=== PATIENT | female | born 1955 | race African-American/Black ===

== ENCOUNTER 2016-11-19 08:50 | Emergency (ER) | payer MEDICARE, MEDICAID ==
[~2016-11-19] VITALS: Ht 154.9 cm; Wt 75.0 kg
[~2016-11-19 08:50] MED LIST: AMLODIPINE5 MG PO; AMOXICILLIN875 MG OR; ARTHRITIS PAIN RELIE PO; AUGMENTIN875TAB OR; BAYER LOW81 MG OR; BLACK COHOS1 OR; CARAFATE OR; CELEBREX200 MG OR; DARVOCET-N 100100 MG OR; DEPO-MEDROL40 MG/ML IM; DILTIAZEM30 MG PO; EC-NAPROSYN500 MG PO; FLUARIX QUADRIV1 INJ IM; FLUOXETINE40 MG PO; FLUZONE SPLT1 M1 IM; FUROSEMIDE40 MG PO; HYDROCHLOROT12.5 MG OR; IMURAN50 MG OR; IMURAN50 MG PO; JANTOVEN3 MG PO; KLOR-CON M2020 MEQ PO; LISINOP/HCTZ1 TA1 OR; LISINOP/HCTZ1 TA1 PO; LISINOP/HCTZ1 TA2 PO; LISINOPRIL20 MG PO; LOVASTATIN20 M1 PO; METOPROL TAR100 M1 PO; METOPROL TAR100 MG OR; METOPROLOL TAR100 MG PO; METOPROLOL TART50 MG PO; NAPROSYN500 MG PO; NITROSTAT0.4 MG SL; NORVASC10 M1 OR; NORVASC10 MG OR; NORVASC10 MG PO; OMEPRAZOLE20 M1 PO; OMEPRAZOLE20 MG PO; OMEPRAZOLE40 MG PO; POLYTRIM OP; POTASSIUM CHLO20 MEQ PO; PRAVACHOL20 MG PO; PRAVASTATIN10 MG PO; PREDNISONE10 MG OR; PREDNISONE10 MG PO; PREDNISONE5 MG PO; PRILOSEC20 MG OR; PROZAC10 MG OR; SIMVASTATIN20 MG OR; SLEEP AID; STERAPRED5 MG PO; TOPROL XL50 MG OR; TRAMADOL HYDROC50 MG PO; XANAX0.5 MG PO; ZESTORETIC 20/11 TAB OR; ZESTRIL20 MG OR; [UNRECOGNIZED DRUG - OTHER] OR
[2016-11-19] MEDS ORDERED: CA CIT/VIT1 PO (09:06)
[2016-11-19] MEDS ORDERED: AMLODIPINE5 MG PO (09:07)
[2016-11-19] MEDS ORDERED: VITAMIN D2000 UNI2 PO (09:07)
[2016-11-19] MEDS ORDERED: MULTI VIT PO (09:17)
[2016-11-19] MEDS ORDERED: OMEPRAZOLE10 MG PO (09:18)
[2016-11-19] MEDS ORDERED: FUROSEMIDE40 MG PO (09:19)
[2016-11-19] MEDS ORDERED: PREDNISONE5 MG PO (09:20)
[2016-11-19] MEDS ORDERED: LOPRESSOR50 M1 PO (09:21)
[2016-11-19] MEDS ORDERED: ASPIRIN81 MG PO (09:22)
[2016-11-19] MEDS ORDERED: LISINOPRIL20 MG PO (09:26)
[2016-11-19] MEDS ORDERED: ZOLPIDEM5 M1 PO (09:27)
[2016-11-19 09:43] LABS: HEMATOCRIT 44.4 % (37.0-47.0); HEMOGLOBIN 14.7 g/dl (12.0-16.0); MEAN CELL VOLUME 85.4 fL CALC (80.0-100.0); MEAN CORPUSCULAR HGB 28.3 pG CALC (26.0-32.0); MEAN CORPUSCULAR HGB CONC 33.1 g/L CALC (32.0-36.0); NEUT# 0.41 thou/uL (2.00-7.15); RED BLOOD COUNT 5.2 mill/uL (4.20-5.60); RED CELL DISTRI WIDTH 13.6 % (11.5-15.5)
[2016-11-19 10:04] LABS: ALBUMIN 4.4 g/dL (3.2-5.0); ALKALINE PHOSPHATASE 83 u/l (38-126); ANION GAP 16 (6-22 (CALC)); BILIRUBIN, TOTAL 1.1 mg/dL (0.0-1.4); BUN 11 mg/dL (7-17); BUN/CREATININE RATIO 11 (12-20 (CALC)); CALCIUM 8.9 mg/dL (8.4-10.2); CARBON DIOXIDE 28 mmol/l (22-30); CHLORIDE 105 mmol/l (95-108); GFR 57 ML/MIN (>=60 (CALC)); GFR FOR AFR.AMER. > 60 ML/MIN (>=60 (CALC)); GLUCOSE 86 mg/dL (65-105); POTASSIUM 3.8 mmol/l (3.5-5.1); SGOT/AST 50 u/l (14-36); SGPT/ALT 46 u/l (9-52); SODIUM 145 mmol/l (137-146); TOTAL PROTEIN 8.1 g/dL (6.3-8.2)
[2016-11-19 10:17] LABS: MYOGLOBIN 47 ng/mL (0 - 62)
[2016-11-19 10:20] LABS: INTERNATIONAL NORMALIZED RATIO 2.7 RATIO (0.7-1.3); PROTHROMBIN TIME 31.4 SECONDS (9.0-12.5)
[2016-11-19 11:42] LABS: URINE BLOOD DIPSTICK TRACE-INTACT (NEGATIVE); URINE CLARITY CLEAR; URINE COLOR YELLOW; URINE GLUCOSE - DIPSTICK NEGATIVE (NEGATIVE); URINE KETONE 15 mg/dL (NEGATIVE); URINE LEUK ESTERASE NEGATIVE (NEGATIVE); URINE NITRITE - DIPSTICK NEGATIVE (Negative); URINE PH 5.5 (4.5-8.0); URINE PROTEIN - DIPSTICK 100 mg/dL (NEG-TRACE)
[2016-11-19 11:49] LABS: URINE BILIRUBIN - DIPSTICK SMALL (NEGATIVE)
[2016-11-19] MEDS ORDERED: ANTIVERT PO (12:06)
[2016-11-19] MEDS ORDERED: ZOFRAN ODT4 MG PO (12:06)
[2016-11-19 12:16] LABS: URINE BACTERIA MODERATE hpf; URINE MUCUS FEW hpf (NONE-FEW); URINE SQUAMOUS EPITHELIAL CELL FEW EPI/hpf (0-FEW)
[2016-11-19 12:17] LABS: URINE COARSE GRANULAR CAST FEW lpf; URINE FINE GRAN CAST FEW lpf; URINE HYALINE CAST FEW lpf (NONE-RARE)
[2016-11-19 12:31] VITALS: BP 135/92
== END 2016-11-19 12:30 | disposition home or self-care (01) ==
LOC: ED 08:50
PROVIDERS: Emergency Medicine
DX: R42 Dizziness and giddiness (principal); I48.91 Unspecified atrial fibrillation; I10 Essential (primary) hypertension

== ENCOUNTER → 2018-08-07 | Outpatient (REF) | payer MEDICARE ==
[~2018-08-07] MED LIST changes: +ANTIVERT PO; +ASPIRIN81 MG PO; +CA CIT/VIT1 PO; +LOPRESSOR50 M1 PO; +MULTI VIT PO; +OMEPRAZOLE10 MG PO; +VITAMIN D2000 UNI2 PO; +ZOFRAN ODT4 MG PO; +ZOLPIDEM5 M1 PO
[2018-08-07 15:36] LABS: INTERNATIONAL NORMALIZED RATIO 1.5 RATIO (0.7-1.3); PROTHROMBIN TIME 15.2 SECONDS (9.0-12.5)
== END | disposition home or self-care (01) ==
LOC: LAB 14:41
PROVIDERS: ATTEND Nurse Practitioner
DX: Z51.81 Encounter for therapeutic drug level monitoring (principal); Z79.01 Long term (current) use of anticoagulants